=== PATIENT | female | born 2000 | race Two or more races ===

== ENCOUNTER 2025-02-22 23:52 | Emergency (ER) | payer MEDICAID, OTHER ==
[~2025-02-22] VITALS: Ht 167.6 cm; Wt 72.3 kg
[2025-02-23 01:35] LABS: Hematocrit 43.9 % (36.0-46.0); Hemoglobin 15.2 g/dL (12.2-16.2); Mean Corpuscular Hemoglobin 32.0 pg (28.0-32.0); Mean Corpuscular Volume 92.3 fL (80.0-100.0); Nucleated Red Blood Cells % 0.0 %
[2025-02-23 01:50] LABS: Chloride 105 mmol/L (98-107); Potassium 3.7 mmol/L (3.5-5.1); Sodium 142 mmol/L (136-145)
[2025-02-23 01:51] LABS: Anion Gap 11 (5-15); Calcium 9.1 mg/dL (8.7-10.4); Carbon Dioxide 26 mmol/L (20-31)
[2025-02-23 01:56] LABS: BUN/Creatinine Ratio 10.8 (10.0-20.0); Glucose 87 mg/dL (74-106)
[2025-02-23 01:58] LABS: Blood Urea Nitrogen 8 mg/dL (9-23)
--- NOTE | 2025-02-23 02:39 | DVH ---
INDICATION: pelvic pain, vag spotting TECHNIQUE: Multiple real-time grayscale transabdominal sonographic images along with color and duplex Doppler of the uterus and ovaries were obtained. COMPARISON: None FINDINGS: The uterus measures 8.7 x 5.4 x 6.0 cm. The endometrial stripe measures 0.8 cm. Right ovary measures 3.2 x 2.8 x 1.8 cm with normal Doppler color flow. Anechoic cyst measures 1.7 x 1.5 x 1.5 cm. Left ovary measures 3.2 x 2.4 x 1.8 cm with normal Doppler color flow. Anechoic cyst measures 1.4 x 1.4 x 1.2 cm. IMPRESSION: 1. Bilateral ovarian cysts. Otherwise, grossly unremarkable pelvic ultrasound.
[2025-02-23 03:38] LABS: Urine Protein, UAD TRACE (Negative)
--- NOTE | 2025-02-23 04:00 | DVH ---
Exam: CT CT AB PEL WO CON-NO ORAL OR IV History: low abd pain Comparison Study: US PELVIC on DOS: 02/23/25 Technique: Multidetector spiral CT of the abdomen was performed from lung bases to pubic symphysis. I maging was performed without IV contrast. Axial, coronal and sagittal multiplanar reformats were obta ined from the axial data set by the technologist. Radiation Dose : 1. Abdomen/Pelvis: CTDIvol 6.28 mGy, DLP 390.02 mGy*cm. Findings: Evaluation of solid organs is limited due to lack of intravenous contrast use. Lung Bases: No acute or significant lung base finding. Normal heart size. No pleural or pericardial effusion. Liver: The liver is normal in size. No focal lesions. Gallbladder and Biliary Tree: Unremarkable Spleen: Unremarkable Pancreas: The pancreas is grossly normal in appearance. Adrenal Glands: Unremarkable Kidneys: Kidneys are grossly normal without calculi or hydronephrosis. Bladder: Grossly unremarkable for degree of distention. Bowel: The stomach is grossly normal in appearance. Small bowel and colon are normal in caliber and d istribution. The appendix is normal. Ascites: Absent Lymphadenopathy: No mesenteric, retroperitoneal or periportal lymphadenopathy. Abdominal Wall and Mesentery: Unremarkable. Vasculature: The visualized abdominal aorta is normal in size and caliber. Evaluation of abdominal a nd pelvic vessels is limited due to lack of intravenous contrast. Pelvic Organs: Unremarkable Musculoskeletal: No aggressive focal bony lesions, acute fractures or dislocation. IMPRESSION: 1. No acute abdominal or pelvic findings. Radiation optimization: All CT scans at this facility use at least one of these dose optimization sony hniques: automated exposure control mA and/or kV adjustment per patient size (includes targeted exam s where dose is matched to clinical indication) or iterative reconstruction.
[2025-02-23] MEDS ORDERED: CEPH500C PO (04:39)
[2025-02-23] MEDS ORDERED: IBUP-1455 PO (04:39)
--- NOTE | 2025-02-23 04:39 | ED.PDOC ---
[facility] HPI Comments 25-year-old female with a history of ovarian cysts brought in by private car complaining of pelvic pain x1 day. She denies any fever, nausea, vomiting, diarrhea, constipation, dysuria, vaginal bleeding or abnormal vaginal discharge. She states the pain is pressure-like and is worse when sitting down. Chief Complaint: Pelvic Pain Time Seen by MD: 01:18 Reviewed Notes: Nurses Notes Allergies: Coded Allergies: NO KNOWN ALLERGIES (Unverified , 02/23/25) Home Meds Active Scripts Ibuprofen Micronized (Ibuprofen) 800 Mg Tab, 800 MG PO Q8HP PRN, #30 TAB Prn pain. Take with food. Prov:PIERO GROVES MD 02/23/25 Cephalexin Monohydrate (Cephalexin) 500 Mg Cap, 1 CAP PO QID for 10 Days, #40 CAP Prov:PIERO GROVES MD 02/23/25 Information Source: Patient Mode of Arrival: Ambulatory Past Medical History Past Medical History (Other): Ovarian cysts Surgical History: Denies all surgeries [employer] History: Ovarian Cysts Family History Family History: Reviewed,noncontributory to illness Social History Smoker: Non-Smoker Alcohol: Denies ETOH Use Drugs: Denies Drug Use Lives In: Home Constitutional: denies: chills, diaphoresis, fatigue, fever, malaise, sweats, weakness, others EENTM: denies: blurred vision, double vision, ear bleeding, ear discharge, ear drainage, ear pain, ear ringing, eye pain, eye redness, hearing loss, mouth pain, mouth swelling, nasal discharge, nose bleeding, nose congestion, nose pa in, photophobia, tearing, throat pain, throat swelling, voice changes, others Respiratory: denies: cough, hemoptysis, orthopnea, SOB at rest, shortness of breath, SOB with excertion, stridor, wheezing, others Cardiovascular: denies: chest pain, dizzy spells, diaphoresis, Dyspnea on exertion, edema, irregular heart beat, left arm pain, lightheadedness, palpitations, PND, syncope, others Gastrointestinal: denies: abdomen distended, abdominal pain, blood streaked bowels, constipated, diarrhea, dysphagia, difficulty swallowing, hematemesis, melena, nausea, poor appetite, poor fluid intake, rectal bleeding, rectal pain, vomiting, others Genitourinary: reports: pain; denies: abnormal vagina bleeding, burning, dyspareunia, dysuria, flank pain, frequency, hematuria, incontinence, , vagina discharge, urgency, others Neurological: denies: dizziness, fainting, headache, left sided numbness, left sided weakness, numbness, paresthesia, pre-existing deficit, right sided numbness, right sided weakness, seizure, speech problems, tingling, tremors, weakness, others Musculoskeletal: denies: back pain, gout, joint pain, joint swelling, muscle pain, muscle stiffness, neck pain, others Integumetry: denies: bruises, change in color, change in hair/nails, dryness, laceration, lesions, lumps, rash, wounds, others Allergic/Immunocompromised: denies: Difficulty Healing, Frequent Infections, Hives, Itching, others Hematologic/Lymphatic: denies: anemia, blood clots, easy bleeding, easy bruising, swollen glands, others Endocrine: denies: excessive hunger, excessive sweating, excessive thirst, excessive urination, flushing, intolerance to cold, intolerance to heat, unexpla ined weight gain, unexplained weight loss, others Psychiatric: denies: anxiety, bipolar disorder, depression, hopeless, panic disorder, schizophrenia, sleepless, suicidal, others All Other Systems: Reviewed and Negative (Comprehensive systems review obtained and negative except for what is stated in the HPI.) Physical Exam General Appearance: No Apparent Distress HEENT: Other (Pupils and face symmetric. Moist mucous membranes.) Neck: Full Range of Motion, Normal Inspection Respiratory: Lungs Clear, No Accessory Muscle Use, No Respiratory Distress, Normal Breath Sounds Cardiovascular: No Edema, No JVD, Regular Rate/Rhythm Breast Exam: Deferred Gastrointestinal: Soft, Suprapubic, Tenderness Genitalia: Deferred Pelvic: Deferred Rectal: Deferred Extremities: Normal inspection, Normal range of motion, Non-tender, No pedal edema Neurologic: Alert (Oriented x4), Normal Affect, Normal Mood, Other (Ambulatory) Cerebellar Function: NOT DONE Reflexes: NOT DONE Skin: Dry, Normal Color, Warm Lymphatic: NOT DONE Was a procedure done? Was a procedure done?: No Differential Diagnosis ([employer]) Vaginal Bleeding: Cervicitis, PID, UTI Mass / Lesion: Other (Ovarian cysts) Vaginal Discharge: X-Ray, Labs, Meds, VS Vital Signs Date Time Temp Pulse Resp B/P (MAP) Pulse Ox O2 Delivery O2 Flow Rate FiO2 02/22/25 23:54 79.9 89 16 131/84 95 79.9 Lab Test 02/23/25 03:20 02/23/25 01:27 Range/Units Urine Color Yellow Yellow Urine Clarity Turbid H Clear Urine pH 7.0 5.0-9.0 Urine Specific [place] 1.034 1.001-1.035 Urine Protein Trace H Negative Urine Ketones Negative Negative Urine Blood Negative Negative /uL Urine Nitrite Negative Negative Urine Bilirubin Negative Negative Urine Urobilinogen 2 H Negative mg/dL Urine Leukocyte Esterase 2+ Negative /uL Urine Glucose Normal Normal mg/dL Urine Test Negative Negative White Blood Count 9.5 4.4-10.8 10^3/uL Red Blood Count 4.76 4.0-5.20 10^6/uL Hemoglobin 15.2 12.2-16.2 g/dL Hematocrit 43.9 36.0-46.0 % Mean Corpuscular Volume 92.3 80.0-100.0 fL Mean Corpuscular Hemoglobin 32.0 28.0-32.0 pg Mean Corpuscular Hemoglobin Concent 34.7 32.0-36.0 g/dL Red Cell Distribution Width 13.6 11.8-14.3 % Platelet Count 463 H 140-450 10^3/uL Mean Platelet Volume 6.6 L 6.9-10.8 fL Neutrophils (%) (Auto) 53.0 37.0-80.0 % Lymphocytes (%) (Auto) 33.5 10.0-50.0 % Monocytes (%) (Auto) 10.7 0.0-12.0 % Eosinophils (%) (Auto) 1.6 0.0-7.0 % Basophils (%) (Auto) 1.2 0.0-2.0 % Neutrophils # (Auto) 5.0 1.6-8.6 10 ^3/uL Lymphocytes # (Auto) 3.2 0.4-5.4 10 ^3/uL Monocytes # (Auto) 1.0 0-1.3 10 ^3/uL Eosinophils # (Auto) 0.1 0-0.8 10 ^3/uL Basophils # (Auto) 0.1 0-0.2 10 ^3/uL Nucleated Red Blood Cells 0.0 % Sodium Level 142 136-145 mmol/L Potassium Level 3.7 3.5-5.1 mmol/L Chloride Level 105 98-107 mmol/L Carbon Dioxide Level 26 20-31 mmol/L Anion Gap 11 5-15 Blood Urea Nitrogen 8 L 9-23 mg/dL Creatinine 0.74 0.550-1.02 mg/dL Glomerular Filtration Rate Calc 114 >90 mL/min BUN/Creatinine Ratio 10.8 10.0-20.0 Serum Glucose 87 74-106 mg/dL Calcium Level 9.1 8.7-10.4 mg/dL PROCEDURE(s): ABPL - CT AB PEL WO CON-NO ORAL OR IV REASON: low abd pain ORDER NUMBER(s): [id number], ACCESSION NUMBER(s): [id number] Exam: CT CT AB PEL WO CON-NO ORAL OR IV History: low abd pain Comparison Study: US PELVIC on DOS: 02/23/25 Technique: Multidetector spiral CT of the abdomen was performed from lung bases to pubic symphysis. Imaging was performed without IV contrast. Axial, coronal and sagittal multiplanar reformats were obtained from the axial data set by the technologist. Radiation Dose : 1. Abdomen/Pelvis: CTDIvol 6.28 mGy, DLP 390.02 mGy*cm. Findings: Evaluation of solid organs is limited due to lack of intravenous contrast use. Lung Bases: No acute or significant lung base finding. Normal heart size. No pleural or pericardial effusion. Liver: The liver is normal in size. No focal lesions. Gallbladder and Biliary Tree: Unremarkable Spleen: Unremarkable Pancreas: The pancreas is grossly normal in appearance. Adrenal Glands: Unremarkable Kidneys: Kidneys are grossly normal without calculi or hydronephrosis. Bladder: Grossly unremarkable for degree of distention. Bowel: The stomach is grossly normal in appearance. Small bowel and colon are normal in caliber and distribution. The appendix is normal. Ascites: Absent Lymphadenopathy: No mesenteric, retroperitoneal or periportal lymphadenopathy. Abdominal Wall and Mesentery: Unremarkable. Vasculature: The visualized abdominal aorta is normal in size and caliber. Evaluation of abdominal and pelvic vessels is limited due to lack of intravenous contrast. Pelvic Organs: Unremarkable Musculoskeletal: No aggressive focal bony lesions, acute fractures or dislocation. IMPRESSION: 1. No acute abdominal or pelvic findings. Radiation optimization: All CT scans at this facility use at least one of these dose optimization techniques: automated exposure control mA and/or kV adjustment per patient size (includes targeted exams where dose is matched to clinical indication) or iterative reconstruction. [address] [address] Ph: [phone] DIAGNOSTIC IMAGING Diagnostic Imaging Report : [id number] Signed PATIENT: MARIPOSA BLOUNT ACCT: [id number] UNIT: [id number] : 2000 LOC: ER ROOM / BED: / AGE / SEX: 25 / F ADM STATUS: REG ER SERVICE 0000 ORDERING PHYSICIAN: PIERO GROVES MD PROCEDURE(s): PELUS - PELVIC REASON: pelvic pain, vag spotting ORDER NUMBER(s): [id number], ACCESSION NUMBER(s): [id number] INDICATION: pelvic pain, vag spotting TECHNIQUE: Multiple real-time grayscale transabdominal sonographic images along with color and duplex Doppler of the uterus and ovaries were obtained. COMPARISON: None FINDINGS: The uterus measures 8.7 x 5.4 x 6.0 cm. The endometrial stripe measures 0.8 cm. Right ovary measures 3.2 x 2.8 x 1.8 cm with normal Doppler color flow. Anechoic cyst measures 1.7 x 1.5 x 1.5 cm. Left ovary measures 3.2 x 2.4 x 1.8 cm with normal Doppler color flow. Anechoic cyst measures 1.4 x 1.4 x 1.2 cm. IMPRESSION: 1. Bilateral ovarian cysts. Otherwise, grossly unremarkable pelvic ultrasound. X-Ray, Labs, Meds, VS Comment 25-year-old female with a history of ovarian cyst brought in by private car complaining of pelvic pain Vitals unremarkable Exam remarkable for suprapubic tenderness Rhythm strip independently interpreted by me: Sinus rhythm, rate 89, no ectopy. CT abdomen and pelvis unremarkable Pelvic ultrasound IMPRESSION: 1. Bilateral ovarian cysts. Otherwise, grossly unremarkable pelvic ultrasound. CBC and basic metabolic panel unremarkable. UA abnormal consistent with UTI. Urine negative Patient treated with the following in the ED: Toradol 60 mg IM On re-evaluation, pain has improved. Vitals were stable. Patient appears stable for discharge with close outpatient follow-up with her OBGYN. Rx Keflex, ibuprofen Time of 1ST Reevaluation: 04:37 Reevaluation 1ST: Improved Patient Education/Counseling: Diagnosis, Treatment, Need For Follow Up Family Education/Counseling: No Family Present Departure 1 Departure Time of Disposition: 04:37 Impression: Primary Impression: UTI (urinary tract infection) Additional Impression: Ovarian cyst Disposition: 01 HOME / SELF CARE / HOMELESS Condition: Stable Additional Instructions: Your blood tests were unremarkable. Your urine test showed you have a bladder infection. Your ultrasound showed ovarian cysts. I have enclosed a report below. I have prescribed pain medication and antibiotics for your UTI. Follow- up with your OBGYN in 1-2 days. Return to ER for persistent or worsening symp toms. [place] [address] Ph: [phone] DIAGNOSTIC IMAGING Diagnostic Imaging Report : [id number] Signed PATIENT: MARIPOSA BLOUNT ACCT: [id number] UNIT: [id number] : 2000 LOC: ER ROOM / BED: / AGE / SEX: 25 / F ADM STATUS: REG ER SERVICE 0000 ORDERING PHYSICIAN: PIERO GROVES MD PROCEDURE(s): PELUS - PELVIC REASON: pelvic pain, vag spotting ORDER NUMBER(s): [id number], ACCESSION NUMBER(s): [id number] INDICATION: pelvic pain, vag spotting TECHNIQUE: Multiple real-time grayscale transabdominal sonographic images along with color and duplex Doppler of the uterus and ovaries were obtained. COMPARISON: None FINDINGS: The uterus measures 8.7 x 5.4 x 6.0 cm. The endometrial stripe measures 0.8 cm. Right ovary measures 3.2 x 2.8 x 1.8 cm with normal Doppler color flow. Anechoic cyst measures 1.7 x 1.5 x 1.5 cm. Left ovary measures 3.2 x 2.4 x 1.8 cm with normal Doppler color flow. Anechoic cyst measures 1.4 x 1.4 x 1.2 cm. IMPRESSION: 1. Bilateral ovarian cysts. Otherwise, grossly unremarkable pelvic ultrasound. e-Prescriptions Ibuprofen Micronized (Ibuprofen) 800 Mg Tab 800 MG PO Q8HP PRN, #30 TAB Prn pain. Take with food. Prov: PIERO GROVES MD 02/23/25 Cephalexin Monohydrate (Cephalexin) 500 Mg Cap 1 CAP PO QID for 10 Days, #40 CAP Prov: PIERO GROVES MD 02/23/25 Discharged With: Relative Critical Care Note Critical Care Time?: No Stability Stability form required: No Heart Score Heart Score: Heart Score Response (Comments) Value History N/A 0 EKG N/A 0 Age N/A 0 Risk Factors N/A 0 Troponin N/A 0 Total 0 I personally scribed for PIERO GROVES MD ([email or web address]) on 02/23/25 at 04:47. Electronically submitted by Helio Baez ([facility] PIERO GROVES MD Feb 23, 2025 04:39
[2025-02-23 04:58] VITALS: BP 106/80; PULSE 79; RESP 16; TEMP 98; O2SAT 95
[2025-02-23] MEDS: KETOROLAC TROMETH 60MG/2ML VIAL IM ONE (04:58)
== END 2025-02-23 05:10 | disposition home or self-care (01) ==
LOC: ER 23:52
DX: N39.0 Urinary tract infection, site not specified (principal); N83.209 Unspecified ovarian cyst, unspecified side
CPT/HCPCS: 36415; 74176; 76830; 76856; 80048; 81003; 81025; 85025; 96372; 99285; J1885